=== PATIENT | male | born 2000 | race Caucasian/White ===

== ENCOUNTER 2021-07-03 14:59 | Emergency (ER) | payer OTHER ==
[~2021-07-03] VITALS: Ht 175.3 cm; Wt 105.7 kg
[2021-07-03] MEDS ORDERED: EFFEXOR XR75 MG PO (15:21)
[2021-07-03] MEDS ORDERED: OMEPRAZOLE20 MG PO (15:22)
[2021-07-03] MEDS ORDERED: ONDANSETRON ODT8 MG PO (18:23)
== END 2021-07-03 18:55 | disposition home or self-care (01) ==
LOC: ED 14:59
DX: K52.9 Noninfective gastroenteritis and colitis, unspecified (principal); K21.9 Gastro-esophageal reflux disease without esophagitis; Z79.899 Other long term (current) drug therapy
CPT/HCPCS: 36415; 74177; 80053; 83690; 85025; 96375; 99284-25; J1170; J2405; J7030; Q9967

== ENCOUNTER 2022-03-30 09:03 | Emergency (ER) | payer OTHER ==
[~2022-03-30] VITALS: Ht 175.3 cm; Wt 102.9 kg
[~2022-03-30 09:03] MED LIST: EFFEXOR XR75 MG PO; OMEPRAZOLE20 MG PO; ONDANSETRON ODT8 MG PO
[2022-03-30] MEDS ORDERED: OMEPRAZOLE20 MG PO (09:14)
[2022-03-30] MEDS ORDERED: LOMOTIL TABLET1 EACH PO (10:07)
[2022-03-30] MEDS ORDERED: ONDANSETRON ODT8 MG PO (10:07)
== END 2022-03-30 10:22 | disposition home or self-care (01) ==
LOC: ED 09:03
DX: K52.9 Noninfective gastroenteritis and colitis, unspecified (principal); K21.9 Gastro-esophageal reflux disease without esophagitis; Z79.899 Other long term (current) drug therapy
CPT/HCPCS: 36415; 80053; 81003; 83690; 85025; 96374; 96375; 99284-25; C9113; J2405; J7030

== ENCOUNTER 2023-11-11 22:34 | Emergency (ER) | payer OTHER ==
[~2023-11-11] VITALS: Ht 175.3 cm; Wt 99.6 kg
[~2023-11-11 22:34] MED LIST changes: +LOMOTIL TABLET1 EACH PO
[2023-11-11] MEDS ORDERED: ondansetron HCL 4 MG/2 ML VIAL IV ONE (23:00)
[2023-11-11] MEDS ORDERED: LACTATED RINGER'S 1,000 ML IV ONE (23:00)
[2023-11-11 23:01] LABS: BASOPHILS 0.3 % (0-2); EOSINOPHILS 0.2 % (0-6); HEMATOCRIT 44.8 % (35.0-50.0); HEMOGLOBIN 14.4 g/dL (12.0-18.0); LYMPHOCYTES 7.3 % (24-44); MCH 28.1 (27-36); MCHC 32.2 g/dl (30-36); MCV 87.4 fl (81-99); MONOCYTES 5.4 % (0-12); NEUTROPHILS 86.8 % (39-80); PLATELET COUNT 347 K/uL (140-440); RBC 5.13 M/ul (4.3-5.7); RDW 13.9 (10.5-15.0)
[2023-11-11] MEDS ORDERED: CEFTRIAXONE/SODIUM CHLORIDE 2 GM/100 ML PIGGYBACK IV ONE (23:15)
[2023-11-11 23:17] LABS: ALBUMIN 4.4 g/dL (3.4-5.0); ALBUMIN/GLOBULIN RATIO 1.1 (1.1-2.4); ANION GAP 16.5 (7-21); BILIRUBIN, TOTAL 1.2 ng/dL (0.2-1.0); BUN/CREATININE RATIO 15.46 (6.0-28.6); CALCIUM 9.5 mg/dL (8.5-10.1); CREATININE, SERUM 0.97 mg/dL (0.70-1.30); MAGNESIUM 1.7 mg/dL (1.8-2.4); POTASSIUM 3.5 mmol/L (3.5-5.1); PROTEIN, TOTAL 8.4 g/dL (6.4-8.2)
[2023-11-11] MEDS ORDERED: PRILOSEC10 M1 PO (23:27)
[2023-11-11] MEDS ORDERED: FAMOTIDINE 20 MG/ 2 ML VIAL IV ONE (23:30)
[2023-11-11 23:48] LABS: LACTIC ACID, BLOOD 1.4 mmol/L (0.4-2.0)
[2023-11-12] MEDS ORDERED: LACTATED RINGER'S 1,000 ML IV ONE ×2 (00:15→00:30)
[2023-11-12 01:15] LABS: BILIRUBIN, URINE NEGATIVE (negative); BLOOD/HGB, URINE NEGATIVE (Negative); KETONE, URINE SMALL (Negative); LEUK ESTERASE, URINE NEGATIVE (negative); NITRITE, URINE NEGATIVE (negative); PH, URINE 7.5 (5-7)
[2023-11-12 01:26] LABS: AMPHETAMINES, URINE NEGATIVE (NEGATIVE); BARBITURATES, URINE NEGATIVE (NEGATIVE); BENZODIAZEPINE, URINE NEGATIVE (NEGATIVE); BUPRENORPHINE, URINE NEGATIVE (NEGATIVE); CANNABINOID, URINE NEGATIVE (NEGATIVE); COCAINE, URINE NEGATIVE (NEGATIVE); ECSTASY, URINE NEGATIVE (NEGATIVE); FENTANYL, URINE NEGATIVE (NEGATIVE); METHADONE, URINE NEGATIVE (NEGATIVE); OPIATES, URINE NEGATIVE (NEGATIVE); OXYCODONE, URINE NEGATIVE (NEGATIVE); PHENCYCLIDINE, URINE NEGATIVE (NEGATIVE)
[2023-11-12] MEDS ORDERED: NYSTATIN100000 UN1 PO (02:37)
[2023-11-12] MEDS ORDERED: BACTRIM DS TAB1 EACH PO (02:37)
[2023-11-12] MEDS ORDERED: ONDANSETRON ODT4 MG PO (02:38)
[2023-11-12 02:50] VITALS: BP 109/74
== END 2023-11-12 02:53 | disposition home or self-care (01) ==
LOC: ED 22:34
PROVIDERS: Internal Medicine
DX: J32.9 Chronic sinusitis, unspecified (principal); R11.2 Nausea with vomiting, unspecified; K21.9 Gastro-esophageal reflux disease without esophagitis; Z79.899 Other long term (current) drug therapy
CPT/HCPCS: 36415; 71045; 80053; 80307; 81003; 83605; 83690; 83735; 85025; 87040; 87651; 96361; 96365; 96375; 99284-25; J0696; J2405; J7121; U0002